=== PATIENT | male | born 1975 | race Caucasian/White ===

== ENCOUNTER 2016-07-19 17:47 | Emergency (ER) | payer SELFPAY | END 2016-07-19 18:58 | disposition home or self-care (01) | LOC: ER 17:47 | DX: J02.0 Streptococcal pharyngitis (principal); M54.2 Cervicalgia; R05 Cough; F17.210 Nicotine dependence, cigarettes, uncomplicated | CPT/HCPCS: 87880; 96372; 99283; 99283-25 ==